=== PATIENT | male | born 1950 | race Caucasian/White ===

== ENCOUNTER 2022-02-01 15:52 | Emergency (ER) | payer BC, OTHER ==
[~2022-02-01] VITALS: Ht 170.2 cm; Wt 70.3 kg
[2022-02-01 16:10] VITALS: BP 131/75
--- NOTE | 2022-02-01 16:23 | NUR ---
PT SEEN AND EXAMINED BY .
[2022-02-01] MEDS ORDERED: TDAP [DIPH/PERTUSSIS/TET] 0.5 ML VIAL IM ONE ×2 (16:30→16:35)
[2022-02-01] MEDS ORDERED: IBUPROFEN 400 MG TABLET PO ONE (16:30)
[2022-02-01] MEDS ORDERED: IBUPROFEN 400 MG TABLET ONE (16:35)
[2022-02-01] MEDS ORDERED: IBUP-1958 PO (16:51)
--- NOTE | 2022-02-01 17:00 | NUR ---
YANN JONES AT BEDSIDE FOR SPLINTING.
--- NOTE | 2022-02-01 17:02 | NUR ---
Patient discharged to home in stable condition. Written and verbal after care instructions given. Patient verbalizes understanding of instruction.
== END 2022-02-01 17:04 | disposition home or self-care (01) ==
LOC: ER 16:01
DX: S60.212A Contusion of left wrist, initial encounter (principal); I10 Essential (primary) hypertension; E78.00 Pure hypercholesterolemia, unspecified; M10.9 Gout, unspecified; W10.1XXA Fall (on)(from) sidewalk curb, initial encounter; Y93.89 Activity, other specified; Y92.89 Other specified places as the place of occurrence of the external cause; Y99.8 Other external cause status
CPT/HCPCS: 73120-TC; 90715